=== PATIENT | female | born 1965 | race Caucasian/White ===

== ENCOUNTER 2023-07-01 09:37 | Emergency (ER) | payer OTHER, SELFPAY ==
--- NOTE | ~2023-07-01 | XR_ITS ---
XR chest 2V DATE: 07/01/2023 10:22 INDICATION: Cough TECHNIQUE: 2 views COMPARISON: None FINDINGS: Mild atelectasis at the right lung base. The lungs otherwise appear clear. No pleural effus ion or pulmonary vascular congestion or pneumothorax. Heart size is within normal limits. No hilar or mediastinal enlargement. Surgical clips overlie the posterior upper outer quadrant of the left breast. Diffuse osteopenia. IMPRESSION: Mild atelectasis at the right lung base; otherwise no active cardiopulmonary disease Reviewed, dictated and finalized at location A. IMPRESSION: Mild atelectasis at the right lung base; otherwise no active cardio pulmonary disease
--- NOTE | 2023-07-01 09:41 | ED.GENADULT ---
HPI - General Adult General Chief complaint: Upper Respiratory Infection Stated complaint: sorethroat,headache Time Seen by Provider: 07/01/23 09:41 Source: patient Mode of arrival: ambulatory Limitations: no limitations History of Present Illness HPI narrative: 57-year-old female presents to the Urgent Care today with complaints of sore throat cough, congestion, and fatigue for 10 days. patient reports not having a fever but experiencing chills at work. patient states people at work have also been having cold symptoms. patient has tried using NyQuil and DayQuil that have helped her sleep. patient denies difficulty breathing and feels like her symptoms have improved today. Related Data Home Medications Medication Instructions Recorded Confirmed Eliquis 07/01/23 Allergies Allergy/AdvReac Type Severity Reaction Status Date / Time poison jose maria extract Allergy Unknown Rash Verified 07/01/23 09:54 Sulfa (Sulfonamide Allergy Unknown Rash Verified 07/01/23 09:54 Antibiotics) sulfanilamide Allergy Unknown Rash Verified 07/01/23 09:54 sulfur dioxide Allergy Unknown Rash Verified 07/01/23 09:54 Review of Systems Review of Systems: CONSTITUTIONAL: Denies fever, positive chills, and denies sweats. EYES: Denies visual changes, redness, or discharge. ENT: positive rhinorrhea, congestion, sore throat, denies otalgia. CARDIOVASCULAR: Denies chest pain, palpitations, or edema. RESPIRATORY: positive cough with production, denies dyspnea. GASTROINTESTINAL: Denies abdominal pain, nausea, vomiting, positive diarrhea. GENITOURINARY: Denies dysuria or hematuria. SKIN: Denies rash or itching. MUSCULOSKELETAL: Denies back pain, joint pain, or myalgia. NEUROLOGIC: positive headache, denies numbness, and weakness. PSYCHIATRIC: Denies anxiety or depression. [facility] Past Medical History Medical History (Updated 07/01/23 @ 10:49 by DARRYL Woo) Arthropathy of ankle Cellulitis and abscess of leg Chronic anticoagulation DVT (deep venous thrombosis) History of pulmonary embolism Insomnia due to medical condition Orthostasis Plantar fascial fibromatosis of left foot Pulmonary embolism Rectal polyp Recurrent acute serous otitis media of both ears Varicose veins of both lower extremities with complications Surgical History Surgical History (Updated 07/01/23 @ 09:46 by DARRYL Woo) H/O hemorrhoidectomy Family History Family History Mother Hypertension Family history of arthritis Family history of obesity Sibling Family history of allergic disorder Family history of obesity Family history of colitis Father Family history of diabetes mellitus in first degree relative Family history of renal failure Family history of heart disease in male family member before age 55 Grandparent Family history of heart disease in male family member before age 55 Other Diabetes mellitus Family history of cardiovascular disease Family history of gout Family history of malignant neoplasm of breast Social History Social History Smoking status: Current every day smoker Alcohol intake: current Comments At the time of my signature I agree with nursing past medical history, surgical, social, and family history. There is no relevant family history pertinent to the presenting complaint. Exam Narrative: GENERAL: Well-appearing, well-nourished, and in no acute distress. HEAD: Normocephalic, atraumatic. EYES: PERRLA and EOMI. ENT: no rhinorrhea or epistaxis. Mucous membranes moist. slight edema to right near. posterior pharynx with no erythema, exudates or lesions present. Bilateral TMs slight fluid noted but no erythema no foreign bodies now NECK: Supple. positive submandibular lymphadenopathy bilaterally. CHEST: Clear to auscultation. No respiratory distress. HEART: Regular rate and rhyt
[2023-07-01 09:53] VITALS: BP 92/58; PULSE 78; RESP 18; TEMP 36.8; O2SAT 98
[2023-07-01 09:54] VITALS: BP 92/58; PULSE 78; RESP 18; TEMP 36.8; O2SAT 98
== END 2023-07-01 10:57 | disposition home or self-care (01) ==
PROVIDERS: Emergency Provider Nurse Practitioner Family
DX: J40 Bronchitis, not specified as acute or chronic (principal); J98.11 Atelectasis; F17.200 Nicotine dependence, unspecified, uncomplicated; Z86.718 Personal history of other venous thrombosis and embolism; Z86.711 Personal history of pulmonary embolism
CPT/HCPCS: 71046; 87081; 87880; 99213; G0463

== ENCOUNTER 2023-07-19 17:11 | Outpatient (CLI) | payer OTHER, SELFPAY ==
[2023-07-19 17:29] LABS: Basophils Absolute Auto 0.1 K/mm3 (0.0-0.1); Basophils Percent Auto 0.8 % (0.2-1.2); Eosinophils Absolute Auto 0.2 K/mm3 (0-0.3); Eosinophils Percent Auto 1.7 % (0-4.4); Hematocrit 41.3 % (37.0-47.0); Hemoglobin 13.1 g/dL (12.0-15.0); Immature Granulocyte Absolute 0.02 K/mm3 (0.00-0.031); Immature Granulocyte Percent A 0.2 % (0-0.5); Lymphocytes Absolute Auto 3.45 K/mm3 (0.9-3.2); Lymphocytes Percent Auto 38.6 % (18.3-44.2); Mean Corpuscular HGB Conc 31.7 g/dl (32-36); Mean Corpuscular Hemoglobin 29.7 pg (26-34); Mean Corpuscular Volume 93.7 fl (80-100); Mean Platelet Volume 8.4 fl (7.4-10.4); Monocytes Absolute Auto 0.5 K/mm3 (0.1-0.6); Monocytes Percent Auto 5.7 % (2.6-8.5); Neutrophils Absolute Auto 4.7 K/mm3 (1.3-6.7); Platelet Count Result 310 k/mm3 (150-375); Red Blood Count 4.41 M/mm3 (4.2-5.4); Red Cell Distribution Width 12.4 % (11.5-14.5); White Blood Count 8.9 K/mm3 (4.5-10.0)
[2023-07-19 17:41] LABS: Alanine Aminotransferase 15 U/L (6-35); Albumin Level 4.5 g/dL (3.5-5.1); Alkaline Phosphatase 80 U/L (38-126); Anion Gap 10 mmol/L (8-16); Aspartate Amino Transferase 26 U/L (14-36); Bilirubin,Total 0.5 mg/dL (0.2-1.3); Blood Urea Nitrogen 16 mg/dL (7-17); Calcium 9.4 mg/dL (8.4-10.2); Carbon Dioxide 26 mmol/L (22-30); Chloride 102 mmol/L (98-107); Cholesterol 280 mg/dL (0-200); Estimated Glomerular Filt Rate > 60; Glucose 113 mg/dL (65-110); HDL Direct 60 mg/dL; Potassium 4.3 mmol/L (3.4-5.0); Sodium 138 mmol/L (137-145); Triglycerides 232 mg/dL (<150)
[2023-07-19 17:52] LABS: LDL Cholesterol Direct 158 mg/dL
[2023-07-19 18:06] LABS: Hemoglobin A1C 5.6 % (<5.7)
== END 2023-07-19 17:12 | disposition home or self-care (01) ==
LOC: ANHLAB 17:12
PROVIDERS: PCP Family Medicine; Visit Provider Family Medicine
DX: E66.9 Obesity, unspecified (principal); Z79.01 Long term (current) use of anticoagulants; Z00.8 Encounter for other general examination
CPT/HCPCS: 36415; 80053; 80061; 83036; 85025

== ENCOUNTER 2023-08-13 11:20 | Emergency (ER) | payer OTHER, SELFPAY ==
[2023-08-13 11:31] VITALS: BP 136/82; PULSE 105; RESP 16; TEMP 37; O2SAT 98
--- NOTE | 2023-08-13 11:56 | ED.URI ---
HPI - URI/Sore Throat General Chief Complaint: Upper Respiratory Infection Stated Complaint: sorethroat,fever Time Seen by Provider: 08/13/23 11:24 Source: patient Mode of arrival: ambulatory Limitations: no limitations History of Present Illness HPI Narrative: 57-year-old female presents to [facility] with complaints of fevers up to 101, nasal congestion, sore throat, body aches, chills, nausea, diarrhea and decreased appetite for the past 2 days. Patient reports that she go to a [employer] event with large amount of people 3 days ago. Patient has been taking [id number] DayQuil, NyQuil and Tylenol with minimal relief. Patient denies vomiting, shortness of breath or wheezing. MD elicited complaint: fever, cough, rhinorrhea and nasal congestion Onset (ago): day(s) (2) Able to tolerate fluids by mouth: Yes Treatments prior to arrival: acetaminophen and cold medicine Related Data Allergies Allergy/AdvReac Type Severity Reaction Status Date / Time poison jose maria extract AdvReac Mild Rash Verified 08/13/23 11:46 Sulfa (Sulfonamide AdvReac Mild Rash Verified 08/13/23 11:46 Antibiotics) sulfanilamide AdvReac Mild Rash Verified 08/13/23 11:46 sulfur dioxide AdvReac Mild Rash Verified 08/13/23 11:46 Review of Systems Constitutional: Constitutional: Reports chills, Reports fatigue, Reports fever(s) and Denies weakness ENT: Denies dysphagia, Denies vertigo, Denies dizziness, Denies epistaxis, Reports nasal congestion and Reports sore throat Cardiovascular: Cardiovascular: Denies chest pain Respiratory: Respiratory: Reports cough, Denies dyspnea and Denies wheezing Gastrointestinal: Gastrointestinal: Denies abdominal pain, Denies bloating, Denies constipation, Denies heartburn, Reports diarrhea, Reports nausea and Denies vomiting Musculoskeletal: Musculoskeletal: Denies arthralgias and Denies joint swelling Integumentary/Breasts: Skin/Breast: Denies rash Neurologic: Denies vertigo, Denies dizziness and Denies syncope [facility] Past Medical History Medical History Arthropathy of ankle Cellulitis and abscess of leg Chronic anticoagulation DVT (deep venous thrombosis) History of pulmonary embolism multiple Insomnia due to medical condition Orthostasis Plantar fascial fibromatosis of left foot Pulmonary embolism Rectal polyp Recurrent acute serous otitis media of both ears Varicose veins of both lower extremities with complications Surgical History Surgical History H/O hemorrhoidectomy H/O right breast biopsy 2012 H/O vaginal hysterectomy ovaries intact. 2012 Family History Family History Mother Hypertension Family history of arthritis Family history of obesity Sibling Family history of allergic disorder Family history of obesity Family history of colitis Father Family history of diabetes mellitus in first degree relative Family history of renal failure Family history of heart disease in male family member before age 55 Grandparent Family history of heart disease in male family member before age 55 Other Diabetes mellitus Family history of cardiovascular disease Family history of gout Family history of malignant neoplasm of breast Social History Social History Smoking status: Never smoker Alcohol intake: current Comments At time of signature, I agree with nursing past medical, surgical, social and family history. There is no relevant family history pertinent to the presenting complaint. Exam Const: General: healthy appearing, no acute distress and alert Nutritional Appearance: well nourished Orientation/consciousness: patient oriented x3 Limitations: no limitations HENMT: Head: normal to inspection Ears: external ears normal, TM's normal bilaterally and EAC's normal
== END 2023-08-13 12:17 | disposition home or self-care (01) ==
PROVIDERS: Emergency Provider Nurse Practitioner Family; PCP Family Medicine
DX: U07.1 COVID-19 (principal); Z86.718 Personal history of other venous thrombosis and embolism; Z86.711 Personal history of pulmonary embolism; Z79.01 Long term (current) use of anticoagulants
CPT/HCPCS: 87426; 87804; 99213; C9803; G0463

== ENCOUNTER 2023-10-05 00:03 | Day surgery (SDC) | payer OTHER, SELFPAY ==
[2023-09-20 15:02] VITALS: BMI 34.0
--- NOTE | 2023-09-20 15:34 | PC.NURSE ---
Spoke with _PATIENT____ regarding medication _ELIQUIS . Pt. verbalizes understanding that the last dose of ____ELIQUIS is to be taken on __10/02/2023 and the Endoscopist will instruct them when to restart after the procedure.
--- NOTE | 2023-10-03 10:08 | SUR.PREOP ---
Patient called regarding upcoming procedure. Message left on pt's vm regarding appointment times.
[2023-10-05 08:02] VITALS: BP 154/92; PULSE 91; RESP 20; TEMP 36; O2SAT 98
[2023-10-05] MEDS: LACTATED RINGERS 1,000 ML 150 ML IV CONT (08:15)
--- NOTE | 2023-10-05 08:55 | PM.HPGS ---
History of Present Illness History of Present Illness Consent: Risks, benefits, and alternatives have been discussed and questions answered. Patient agrees to proceed with procedure. Chief complaint: hx of colon polyps Narrative: Doreen Andre is a 58 year old female with colon polyp in 2012, 2018 no polyps. Review of Systems Constitutional: Constitutional: Denies headache(s) and Denies weakness Eyes: Eyes: Denies blurry vision ENT: Reports Normal hearing present, Denies headache(s) and Denies neck pain Cardiovascular: Cardiovascular: Denies chest pain and Denies dyspnea Respiratory: Respiratory: Denies dyspnea Gastrointestinal: Gastrointestinal: Reports no additional gastrointestinal complaints Genitourinary: Genitourinary: Denies dysuria Musculoskeletal: Musculoskeletal: Denies neck pain Integumentary/Breasts: Skin/Breast: Denies dry skin Neurologic: Reports Normal hearing present, Denies headache(s) and Denies weakness Psychiatric: Psychiatric: Denies anxiety Endocrine: Endocrine: Denies change in body appearance Hematologic/Lymphatic: Hematologic/Lymphatic: Denies easy bleeding Allergic/Immunologic: Allergic/Immunologic: Denies urticaria PMFSH Past Medical History Medical History Arthropathy of ankle Cellulitis and abscess of leg Chronic anticoagulation DVT (deep venous thrombosis) History of pulmonary embolism multiple Insomnia due to medical condition Orthostasis Plantar fascial fibromatosis of left foot Pulmonary embolism Rectal polyp Recurrent acute serous otitis media of both ears Varicose veins of both lower extremities with complications Surgical History Surgical History H/O hemorrhoidectomy H/O right breast biopsy 2012 H/O vaginal hysterectomy ovaries intact. 2013 Family History Family History Mother Hypertension Family history of arthritis Family history of obesity Sibling Family history of allergic disorder Family history of obesity Family history of colitis Father Family history of diabetes mellitus in first degree relative Family history of renal failure Family history of heart disease in male family member before age 55 Grandparent Family history of heart disease in male family member before age 55 Other Diabetes mellitus Family history of cardiovascular disease Family history of gout Family history of malignant neoplasm of breast Social History Social History (Updated 08/21/23 @ 15:13 by Brenda Ceja MA) Smoking status: Never smoker Alcohol intake: current Drinks per week: 2 Substance use: never Substance use type: does not use Do You Feel Safe in your Home?: Yes Lack of Transportation: No Lack of Food: Never True Current Housing: I Have Housing Concerned About Future Housing: No Difficulty Paying Gas/Electric Bills: No Difficulty Paying for Meds: No Currently Unemployed: No Education: Master's Degree or Higher Difficulty w/ Childcare or Family Care: No Living arrangements: with family Spiritual care concerns: No Meds Home Medications and Allergies Home Medications Medication Instructions Recorded Confirmed Type apixaban 2.5 mg tablet (Eliquis) 2.5 mg PO BID #180 tabs 07/17/23 09/20/23 Rx benzonatate 100 mg capsule 100 mg PO BID PRN cough #20 caps 08/13/23 09/20/23 Rx loratadine 10 mg tablet (Claritin) 10 mg PO DAILY #30 tabs 08/13/23 09/20/23 Rx bupropion HCl 150 mg 24 hr tablet, 150 mg PO QAM #90 tabs 08/21/23 09/20/23 Rx extended release Allergies Allergy/AdvReac Type Severity Reaction Status Date / Time poison jose maria extract AdvReac Mild Rash Verified 10/05/23 08:01 Sulfa (Sulfonamide AdvReac Mild Rash Verified 10/05/23 08:01 Antibiotics) sulfanilamide AdvReac Mild Rash Verified 10/05/23 08:01 sulfur
--- NOTE | 2023-10-05 08:56 | WPDANESEPPF ---
Anes - Initial Pre Proc Eval Procedure: Operation Date: 10/05/23 09:00 Proposed Procedures p Colonoscopy - Rudolph Daniels MD Date/Time: 10/05/23 08:56 Surgeon: Rudolph Daniels MD Pre Op Diagnosis: hx of colon polyps Patient Data Age: 58 Gender: F Height: 1.78 m Weight: 107.1 kg Last Vital Signs Temp 96.8 F L 10/05/23 08:02 Pulse 91 10/05/23 08:02 Resp 20 10/05/23 08:02 BP 154/92 H 10/05/23 08:02 Pulse Ox 98 10/05/23 08:02 O2 Del Method Room Air 10/05/23 08:02 Allergies Allergy/AdvReac Type Severity Reaction Status Date / Time poison jose maria extract AdvReac Mild Rash Verified 10/05/23 08:01 Sulfa (Sulfonamide AdvReac Mild Rash Verified 10/05/23 08:01 Antibiotics) sulfanilamide AdvReac Mild Rash Verified 10/05/23 08:01 sulfur dioxide AdvReac Mild Rash Verified 10/05/23 08:01 steri strip adhesive Allergy Severe Rash Uncoded 10/05/23 08:01 Home Medications Medication Instructions Recorded Confirmed Type apixaban 2.5 mg tablet (Eliquis) 2.5 mg PO BID #180 tabs 07/17/23 09/20/23 Rx benzonatate 100 mg capsule 100 mg PO BID PRN cough #20 caps 08/13/23 09/20/23 Rx loratadine 10 mg tablet (Claritin) 10 mg PO DAILY #30 tabs 08/13/23 09/20/23 Rx bupropion HCl 150 mg 24 hr tablet, 150 mg PO QAM #90 tabs 08/21/23 09/20/23 Rx extended release Patient hx anesthesia problems: none Family hx anesthesia problems: none Results Review: All pre-operative results and documents have been reviewed as part of the pre-operative evaluation. [facility] Past Medical History Medical History Arthropathy of ankle Cellulitis and abscess of leg Chronic anticoagulation DVT (deep venous thrombosis) History of pulmonary embolism multiple Insomnia due to medical condition Orthostasis Plantar fascial fibromatosis of left foot Pulmonary embolism Rectal polyp Recurrent acute serous otitis media of both ears Varicose veins of both lower extremities with complications Surgical History Surgical History H/O hemorrhoidectomy H/O right breast biopsy 2012 H/O vaginal hysterectomy ovaries intact. 2012 Family History Family History Mother Hypertension Family history of arthritis Family history of obesity Sibling Family history of allergic disorder Family history of obesity Family history of colitis Father Family history of diabetes mellitus in first degree relative Family history of renal failure Family history of heart disease in male family member before age 55 Grandparent Family history of heart disease in male family member before age 55 Other Diabetes mellitus Family history of cardiovascular disease Family history of gout Family history of malignant neoplasm of breast Social History Social History (Updated 08/21/23 @ 15:13 by Brenda Ceja MA) Smoking status: Never smoker Alcohol intake: current Drinks per week: 2 Substance use: never Substance use type: does not use Do You Feel Safe in your Home?: Yes Lack of Transportation: No Lack of Food: Never True Current Housing: I Have Housing Concerned About Future Housing: No Difficulty Paying Gas/Electric Bills: No Difficulty Paying for Meds: No Currently Unemployed: No Education: Master's Degree or Higher Difficulty w/ Childcare or Family Care: No Living arrangements: with family Spiritual care concerns: No Anes - Eval Final PreProcedure Day of Procedure 10/05/23 08:56 Patient weight: obese Heart: regular rate and rhythm Lungs: clear to auscultation Airway: Mallampati scale class II Neurological: alert and oriented Last oral intake: >/= 8 hours ASA classification: III Emergent: no Anesthetic plan: proceed Anesthesia type and monitoring: general GIVS and standard monitoring Re
[2023-10-05 09:16] VITALS: BP 123/81; PULSE 84; RESP 20; O2SAT 98
[2023-10-05 09:26] VITALS: BP 117/85; PULSE 82; RESP 23; O2SAT 98
[2023-10-05 09:31] VITALS: BP 124/80; PULSE 76; RESP 20; O2SAT 98
[2023-10-05 09:39] VITALS: BP 124/90; PULSE 73; RESP 20; O2SAT 98
== END 2023-10-05 09:44 | disposition home or self-care (01) ==
PROVIDERS: PCP Family Medicine; Visit Provider Internal Medicine Gastroenterology
PROC: 0DJD8ZZ Inspection of Lower Intestinal Tract, Via Natural or Artificial Opening Endoscopic (ICD-10-PCS; CPT 45378; principal; 2023-10-05 09:00)
DX: Z12.11 Encounter for screening for malignant neoplasm of colon (principal); K64.8 Other hemorrhoids; Z86.010 Personal history of colon polyps; Z86.718 Personal history of other venous thrombosis and embolism; Z86.711 Personal history of pulmonary embolism; Z79.01 Long term (current) use of anticoagulants; E66.9 Obesity, unspecified; Z68.33 Body mass index [BMI] 33.0-33.9, adult
CPT/HCPCS: 45378; J2704; J7120

== ENCOUNTER → 2023-10-31 14:21 | Outpatient (CLI) | payer OTHER, SELFPAY ==
--- NOTE | ~2023-10-31 | MM_ITS ---
EXAMINATION: MM screening laith BI w steve HISTORY: Screening TECHNIQUE: Craniocaudal and mediolateral oblique 3-D tomosynthesis images were obtained and synthetic 2-D images were generated. CAD analysis was submitted and interpreted. COMPARISON: No prior mammogram is available for comparison at this institution. BREAST PARENCHYMAL COMPOSITION: The breasts are almost entirely fatty. FINDINGS: There is no evidence of suspicious mass, calcification, or architectural distortion to sugg est malignancy in either breast. There has been no suspicious interval change. IMPRESSION: 1. No mammographic evidence of malignancy. 2. Recommend routine screening mammography in one year. BI-RADS Category 1: Negative Reviewed, dictated and finalized at location A. PMENT TECH
== END ==
PROVIDERS: PCP Family Medicine; Visit Provider Family Medicine
DX: Z12.31 Encounter for screening mammogram for malignant neoplasm of breast (principal)
CPT/HCPCS: 77063; 77067

== ENCOUNTER 2024-06-09 16:55 | Outpatient (CLI) | payer OTHER, SELFPAY ==
[2024-06-09 17:27] LABS: Alanine Aminotransferase 13 U/L (6-35); Albumin Level 4.5 g/dL (3.5-5.1); Alkaline Phosphatase 90 U/L (38-126); Anion Gap 7 mmol/L (4-12); Aspartate Amino Transferase 23 U/L (14-36); Bilirubin,Total 0.4 mg/dL (0.2-1.3); Blood Urea Nitrogen 14 mg/dL (7-17); Calcium 9.4 mg/dL (8.4-10.2); Carbon Dioxide 30 mmol/L (22-30); Chloride 101 mmol/L (98-107); Cholesterol 265 mg/dL (0-200); Estimated Glomerular Filt Rate > 60; Glucose 110 mg/dL (65-110); HDL Direct 62 mg/dL; Potassium 4.6 mmol/L (3.4-5.0); Sodium 138 mmol/L (137-145); Triglycerides 217 mg/dL (<150)
[2024-06-09 17:31] LABS: Hemoglobin A1C 5.8 % (<5.7)
[2024-06-09 17:39] LABS: LDL Cholesterol Direct 146 mg/dL
[2024-06-09 18:49] LABS: Hepatitis C Virus Antibody Negative (Negative)
== END 2024-06-09 16:56 | disposition home or self-care (01) ==
LOC: ANHLAB 16:57
PROVIDERS: PCP Family Medicine; Visit Provider Family Medicine
DX: E78.2 Mixed hyperlipidemia (principal); Z11.59 Encounter for screening for other viral diseases; R73.01 Impaired fasting glucose
CPT/HCPCS: 36415; 80053; 80061; 83036; 86803

== ENCOUNTER 2025-04-22 08:31 | Outpatient (CLI) | payer OTHER, SELFPAY ==
--- OUTSIDE RECORDS SUMMARY | 2023-12-14 04:45 | XMS_ITS | Continuity of Care Document ---
Author Organization [facility] Address [address] [place] [address] Phone Care Team Providers Care Lockstitch Sleeve Setter Name Role Phone Kaiser Moran DO Unavailable Unavailable Allergies, Adverse Reactions, Alerts Substance Reaction Status Criticality adhesive Active No Information Sulfa (Sulfonamide Antibiotics) Active No Information Medications Medication Instructions Dosage Effective Dates (start - stop) Status Comments Zyrtec 10 mg tablet - Active Eliquis 5 mg tablet - Active Procedures Procedure Date RADEX HAND MINIMUM 3 VIEWS OFFICE CONSULTATION Advance Directives Directive Yes / No Effective Date File Name Other Directive No N/A N/A WARNING:The information contained in this section is historical and is provided for information only and does not constitute a legal document or any assurance that the information is still accurate. Please verify the information with the howell of the legal document before using it for clinical purposes. Encounters Encounter Description Practice Location Reason(s) For Visit Diagnoses Date Provider Providers Copied on Encounter OFFICE CONSULTATION [facility] , [address], [place], [address], [place] tel:[phone] [facility] Right hand painBody mass index [BMI] 34.0-34.9, adult Dec- 4 Luisa Saab . [address], [place], [place], [id number] , [place]. tel:[phone] Referring Provider: Rohini Guadarrama, PERMANENTLY CLOSED [address] [place], [place], [address]. tel:[phone] Family History Family Member Type Diagnosis Age At Onset No Information Payers Payer name Insurance type Covered green party ID Prince vital(s) [facility] OT [id number] Social History Type Description Quantity Date Captured Comments Alcohol Use Details Caffeine Use Details Unknown Tobacco Use Status Current non-smoker Smoking Status Never smoker Non-Smoking Tobacco Use Details : No Details Available : No Details Available Sex Female Vital Signs Date / Time: Height Weight BMI Pulse Rate Blood Pressure Temperature Respiratory Rate Body Surface Area Head Circumference Head Circ. Percentile Wt./Cyrus. Percentile BMI percentile Pulse Ox Inhaled Ox 10:00 AM 70.00 in 108.409 kg (239.00 lbs) 34.2 9 kg/m eter (2) Chief Complaint And Reason For Visit No Information Reason For Referral Reason For Referral No Information Plan Of Treatment Date Type Action Status Goal Lifestyle education regardin g diet completed Referral Ordered: RADEX HAND MINIMUM 3 VIEWS RT ordered History Of Present Illness Encounter Date Complaint History Of Prese nt Illness No Information Functional Status Date Functional Assessmen t No Information Instructions Date Instruction Additional Infor mation Lifestyle education regarding di et Related to Body mass index [BMI] 34.0-34.9, adult Assessments Type Assessment Date assessment Right hand pain assessment Body mass index [BMI] 34.0-34.9, adult Patient Care Teams Name Effective Dates (start - stop) Status Members No Information
--- NOTE | ~2025-04-22 | MM_ITS ---
EXAMINATION: MM screening laith BI w steve HISTORY: Screening mammogram TECHNIQUE: Craniocaudal and mediolateral oblique 3-D tomosynthesis images were obtained and synthetic 2-D images were generated. CAD analysis was submitted and interpreted. COMPARISON: 10/31/2023 BREAST PARENCHYMAL COMPOSITION:Not Dense. The breasts are almost entirely fatty FINDINGS: No suspicious mass, calcification, or architectural distortion are identified in either breast to suggest malignancy. There has been no suspicious interval change. IMPRESSION: No mammographic evidence of malignancy. Recommend routine screening mammography in one year. BI-RADS Category 1: Negative Reviewed, dictated and finalized at location .
--- OUTSIDE RECORDS SUMMARY | 2025-04-22 08:35 | XMS_ITS | Clinical Summary ---
Author Organization [facility] Address [address] [place] [address] Care Team Providers Care Comber Fixer Name Role Phone Dio Rutherford MD Primary Care Provider [phone] Social History Tobacco Use Types Packs/Day Years Used Date Smoking Tobacco: Never Assessed Comments Unknown Sex and Gender Information Value Date Recorded Sex Assigned at Not on file Legal Sex Female 7:17 PM CDT Gender Identity Not on file Sexual Orientation Not on file Last Filed Vital Signs Vital Sign Reading Time Taken Comments Blood Pressure 102/76 07/04/2012 9:19 AM CDT Pulse 87 07/04/2012 9:19 AM CDT Temperature - - Respiratory Rate - - Oxygen Saturation - - Inhaled Oxygen Concentration - - Weight 100.2 kg (221 lb) 07/04/2012 9:19 AM CDT Height 177.8 cm (5' 10) 07/04/2012 9:19 AM CDT Body Mass Index 31.71 07/04/2012 9:19 AM CDT Plan of Treatment Health Maintenance Due Date Last Done Comments Cervical Cancer Screening Pap Smear (Age 30 to 64) Every 3 Years 1963 Colorectal Cancer Screening Colonoscopy (10 Years) 1963 Annual Physical 1966 Hepatitis C 1981 DTaP, Tdap and Td Vaccines (1 - Tdap) 1982 Cervical Cancer Screening Pap with HPV Testing (Age 30 to 64) Every 5 Years 1993 Cervical Cancer Screening with HPV 1993 Mammogram Screening 2003 Pneumococcal Vaccine: 50+ Years (1 of 1 - PCV) 2013 COVID-19 Vaccine ( - season) 2024 06/20/2022, 09/14/2021, 09/16/2020, Additional history exists RSV Immunization or 60+ Years (1 - 1-dose 75+ series) 2038 Zoster Vaccines Completed 11/04/2022, 07/13/2022 Meningococcal B Vaccine Aged Out No l onger eligible based on patient's age to complete this topic Meningococcal Vaccine Aged Out No av magdiel eligible based on patient's age to complete this topic RSV Immunizations Under 20 Months Aged Out No longer eligible based on patient's age to complete this topic Insurance [facility] Care Teams Comber Fixer Relationship Specialty Start Date End Date Dio Rutherford MD [facility] [address] [place] [address] PCP - General FAMILY PRACTICE 11/15/23
--- OUTSIDE RECORDS SUMMARY | 2025-04-22 08:35 | XMS_ITS | Encounter Summary ---
Author Organization [facility] Facility Care Team Providers Care Biochemistry Teacher Name Role Phone Hiwot Quiroz MD Primary Care Provider + Brenda Woodall MD Unavailable [phone] Hiwot Quiroz MD Primary Care Provider + Berhane Mendez MD Primary Care Provider [phone] Ananya Sloan DPT Unavailable [phone] Encounter Details Date Type Department Care Team (Latest Contact Info) Description 05/08/2016 Orders Only [facility] CLINCONV ProviderSheila MD [address] [place] [id number] Social History Tobacco Use Types Packs/Day Years Used Date Smoking Tobacco: Former Alcohol Use Standard Drinks/Week Comments Yes 0 (1 standard drink = 0.6 oz pur e alcohol) Comments Unknown Sex and Gender Information Value Date Recorded Sex Assigned at Not on file Legal Sex Female 2:22 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 us Historical Provider Final Res ult documented in this encounter Visit Diagnoses Not on filedocumented in this encounter Care Teams Biochemistry Teacher Relationship Specialty Start Date End Date Hiwot Quiroz MD [address] [place] [address] PCP - General 02/07/16 03/07/20 Hiwot Quiroz MD [address] [place] [address] PCP - General 03/08/20 04/19/20 Berhane Mendez MD [address] [place] [id number] PCP - General 04/20/20 Brenda Woodall MD [address] [place] [id number] General Surgery 03/08/20 Ananya Sloan DPT [address] [facility] [address] [place] [address] Physical Therapist Physical Therapy 09/13/20 documented as of this encounter
--- OUTSIDE RECORDS SUMMARY | 2025-04-22 08:35 | XMS_ITS | Clinical Summary ---
Author Organization [facility] Address [address], [facility] [address] [place] [address] Phone Care Team Providers Care Aegis Operations Specialist Name Role Phone Rohini Rutherford MD Primary Care Provider [phone] Clem Sanchez MD Unavailable Allergies Active Allergy Reactions Criticality Noted Date Comments Poison Carissa Extract Other (see Comments) 018 Blister, rash, oozing Sulfa Antibiotics Vomiting Low 08/22/2016 Medications apixaban (Eliquis) 5 MG Tablet 08/25/2019 Active buPROPion SR (WELLBUTRIN SR) 150 MG TABLET SR 12 HR Take by mouth. Active cetirizine (ZyrTEC) 10 MG Tablet Active Active Problems No known active problems Family History Medical History Relation Name Comments Congestive Heart Failure Father Renal Failure Father Relation Name Status Comments Brother Child 1 Alive Child 2 Alive Father Alive Mother Social History Tobacco Use Types Packs/Day Years Used Date Smoking Tobacco: Never Smokeless Tobacco: Never Tobacco Cessation:Counseling Given: Not Answered Alcohol Use Standard Drinks/Week Comments Yes 2 (1 standard drink = 0.6 oz pur e alcohol) Comments Unknown Sex and Gender Information Value Date Recorded Sex Assigned at Not on file Legal Sex Female 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 Gender Identity Not on file Sexual Orientation Not on file Last Filed Vital Signs Vital Sign Reading Time Taken Comments Blood Pressure 130/82 05/01/2024 11:04 AM CDT Pulse 77 05/01/2024 11:04 AM CDT Temperature 36.1 C (97 F) 05/01/2024 11:04 AM CDT Respiratory Rate 18 05/01/2024 11:0 4 AM CDT Oxygen Saturation 98% 05/01/2024 11: 04 AM CDT Inhaled Oxygen Concentration - - Weight 112.3 kg (247 lb 9.6 oz) 024 11:04 AM CDT Height 177.8 cm (5' 10) 05/01/2024 11: 04 AM CDT Body Mass Index 35.53 05/01/2024 11:04 AM CDT Plan of Treatment Upcoming Encounters Date Type Department Care Team (Late st Contact Info) Description 04/30/2025 11:00 AM CDT Office Visit [facility] [address] [address] Ceasar Espinoza MD [address] [place] [address] Health Maintenance Due Date Last Done Comments Hepatitis C Virus (HCV) Screening 1963 TdaP Immunization 1963 Pneumococcal Immunization (50+ years) (1 of 2 - PCV) 1982 Cologuard 2008 Colonoscopy 2008 Colorectal Cancer Screening 2008 Immunochemical Fecal Occult Blood 2008 Mammogram 05/27/2021 05/27/2020, 09/04, 07/19/2016, Additional history exists SARS-COV-2 Immunization ( season) 2024 06/20/2022, 09/14/2021, 09/16/2020, Additional history exists Influenza Immunization (#1) 05/04/202506/03, 07/13/2022, 06/20/2022, Additional history exists Respiratory Syncytial Virus (RSV) Immunization (Adult) (1 - 1-dose 75+ series) 2038 Zoster Immunization Completed 11/04/2022, Hepatitis B Immunization Aged Out No longer eligible based on patient's age to complete this topic Human Papillomavirus (HPV) Immunization Aged Out No longer eligible based on patient's age to complete this topic Meningococcal Immunization (ACWY) Aged Out No longer eligible based on patient's age to complete this topic Rotavirus Immunization Aged Out No lo nger eligible based on patient's age to complete this topic Insurance [employer] Care Teams Aegis Operations Specialist Relationship Specialty Start Date End Date Rohini Rutherford MD [facility] [address] [place] [address] PCP - General Family Medicine 10/25/23 Clem Sanchez MD [address] [place] [address] Consulting Physician Oncology 10/25/23
--- OUTSIDE RECORDS SUMMARY | 2025-04-22 08:35 | XMS_ITS | Clinical Summary ---
Author Organization [facility] Address [address] [facility] [place] [address] Care Team Providers Care Geophysical E Logger Name Role Phone Berhane Mendez MD Primary Care Provider [phone] Source Comments [facility],non-research medical center Affiliates and Associated Physician Practices is amultiple site organization consisting of ambulatory clinics and hospital sitesin [place], [place], [place] and [place]. This disclosure is being madepursuant to the Care Everywhere program and may not contain all information available regarding this patient. Last updated 18.[facility] Allergies Active Allergy Reactions Criticality Noted Date Comments Extract Of Poison Carissa Other 12/10/2017 Blister, rash, oozing Sulfa Drugs 08/22/2016 Medications * Be aware that medications may not be up to date on this document. Alwaysverify current medications with the patient. Cetirizine HCl (ZYRTEC ALLERGY PO) Active aspirin EC (ECOTRIN) 81 MG tablet Take 81 mg by mouth once daily Active ELIQUIS 5 MG tablet 9 Active methylPREDNISol one (MEDROL DOSEPAK) 4 MG tablet Take by mouth as directed Follow package insert dosing for six day supply. 21 tablet 0 Active OtherIndication s:Acute anal fissure Apply sparingly 3-4 times a day PRN 1 Each 1 2 Active Active Problems Problem Noted Date Diagnosed Date Vein, varicose 09/04/2019 Lump of breast, left 12/17/2015 Unknown and unspecified causes of morbidity 01/01 Overview (09/04/2019): Overview: Female bladder prolapse, acquired Uterine prolapse 01/17/2014 Overview (09/04/2019): Overview: Uterine prolapse Family history of breast cancer 09/20/2011 Immunizations Immunization Administration Dates Next Due INFLUENZA VACCINE 06/03/2021 Family History Medical History Relation Name Comments Colitis Brother Ulcerative Colitis Brother CAD (Coronary Artery Disease) Father Diabetes - Type 2 Father Renal Disease Father Colitis Mother Colon polyps Mother Crohn's Disease Mother Hypertension Mother Ulcerative Colitis Mother Relation Name Status Comments Brother Father Mother Social History Tobacco Use Types Packs/Day Years Used Date Smoking Tobacco: Never Smokeless Tobacco: Never Alcohol Use Standard Drinks/Week Comments Yes 0 (1 standard drink = 0.6 oz pur e alcohol) AUDIT-C Answer Date Recorded Frequency of Alcohol Consumption Never 09/04/2019 Average Number of Drinks Not on file 020 Frequency of Binge Drinking Not on file 10/2019 Comments No Sex and Gender Information Value Date Recorded Sex Assigned at Not on file Legal Sex Female 10:02 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 Gender Identity Not on file Sexual Orientation Not on file Last Filed Vital Signs Vital Sign Reading Time Taken Comments Blood Pressure 119/87 01/12/2022 11:20 AM CDT Pulse 74 01/12/2022 11:20 AM CDT Temperature 36.8 C (98.3 F) 09/04/2019 12:25 PM VOIP TECHNICIAN Respiratory Rate 17 09/04/2019 12:25 PM VOIP TECHNICIAN Oxygen Saturation 97% 01/12/2022 11:20 AM CDT Inhaled Oxygen Concentration - - Weight 117 kg (258 lb) 01/12/2022 11:20 AM CDT Height 177.8 cm (5' 10) 01/12/2022 11:20 AM CDT Body Mass Index 37.02 01/12/2022 11:20 AM CDT Plan of Treatment Health Maintenance Due Date Last Done Comments COLOGUARD (AGES 45-75) - COL ON CA SCREENING 1963 COLON MONITORING 1963 COLONOSCOPY - COLON CA SCREENING 1963 CT COLONOGRAPHY - COLON CA SCREENING 1963 Colorectal Cancer Screening 1963 FIT - COLON CA SCREENING 1963 FLEX SIG - COLON CA SCREENING 1963 LIPID TESTING 1963 HIV SCREENING 1978 HEPATITIS C SCREENING 09/26/1981 DTAP/TDAP/TD VACCINES (1 - Tdap) 1982 PNEUMOCOCCAL VACCINE 50+ (1 of 1 - PCV) 2013 ZOSTER VACCINE (1 of 2) 2013 MAMMOGRAM 04/12/2017 04/12/2015, 04/07/2014, 03/07/2013 SCREENING FOR DIABETES 01/12/2022 COVID-19 VACCINE (1 - 2023-2 5 season) 2024 DEPRESSION SCREENING 09/03/2024 INFLUENZA VACCINE (#1) 2025 06/03/2021 Respiratory Syncytial Virus (RSV) Vaccine Pt: or over 60 yrs (1 - 1-dose 75+ series) 2038 HEPATITIS B VACCINE Aged Out No longe r eligible based on patient's age to complete this topic HIB VACCINE Aged Out No longer eligi ble based on patient's age to complete this topic HPV VACCINE Aged Out No longer eligi ble based on patient's age to complete this topic MENINGOCOCCAL (Group B) VACCINE SHARED DECISION-MAKING Aged Out No longer eligible based on patient's age to complete this topic MENINGOCOCCAL GROUPS A/C/Y/W VACCINE Aged Out No longer eligible b ased on patient's age to complete this topic Insurance [facility] Care Teams Geophysical E Logger Relationship Specialty Start Date End Date Berhane Mendez MD [address] [place] [address] PCP - General 01/12/22
--- OUTSIDE RECORDS SUMMARY | 2025-04-22 08:35 | XMS_ITS | Clinical Summary ---
Author Organization [facility] Address [address] [place] [address] Care Team Providers Care Tumble Tailstock Turret Lathe Operator Name Role Phone Brenda Woodall MD Unavailable Berhane Mendez MD Primary Care Provider Ananya Sloan DPT Unavailable [phone] Allergies Active Allergy Reactions Criticality Noted Date Comments Adhesive Rash Medium 02/09/2025 Adhesive Tape-Silicones Rash,Agitation Medium 02/10/20 25 Patient states she is highly allergic to steri strips Other Rash Medium 12/30/2021 Sulfa (Sulfonamide Antibiotics) Other (See comments) Low Stomach pain Sulfanilamide Stomach upset,Nausea & Vomiting Low Medications apixaban (ELIQUIS) 5 mg tabletIndicatio ns:Venous Thrombosis,dvt and PE Take 1 tablet (5 mg total) by mouth 2 (two) times a day Hold for 2 days prior, per suspect artist 9 Active cetirizine (ZyrTEC) 10 mg tabletIndicatio ns:Allergic Rhinitis Take 1 tablet (10 mg total) by mouth daily as needed Active ibuprofen (ADVIL,MOTRIN) 200 mg tab/capIndicati ons:Pain Take 2 tablet/capsule (400 mg total) by mouth every 6 (six) hours as needed for pain Active multivitamin capsuleIndicati ons:Vitamin Deficiency Prevention Take 1 capsule by mouth every morning Active Active Problems Problem Noted Date Diagnosed Date Other chest pain 08/11/2020 Cellulitis of lower leg 08/11/2020 Chronic peripheral venous hypertension 0 Depressive disorder 08/11/2020 Obesity 08/11/2020 Polyp of large intestine 08/11/2020 Postoperative state 08/11/2020 History of DVT (deep vein thrombosis) 08/11/2020 History of pulmonary embolus (PE) 08/11/2020 Contact dermatitis 07/25/2020 Assessment & Plan (07/25/2020 11:10 AM CREPING MACHINE OPERATOR HELPER): Based on history, suspect new turtle neck as cause of this rash. To start triamcinolone cream to affected area twice a day for up to 2 weeks. She additionally, did prescribe a prednisone burst. May continue as needed Benadryl for itching. 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 Drink enough fluids. 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 Patient has a chronic left popliteal DVT found on duplex scan. Plan: Due to multiple DVT's recommend lifelong anticoagulation. -Continue Eliquis. Varicose veins of both lower extremities with pa in 06/06/2016 Assessment & Plan (01/28/2025 11:17 AM CDT): Impression: Patient has had multiple interventions to bilateral lower extremities in 2019. Patient continues to have pain and heaviness to bilateral lower extremities with her left lower extremity worse than the right despite compression therapy, leg elevation. Patient reports she is active riding bikes, walking, and aerobics however due to discomfort to her legs her activity level has decreased causing difficulties with weight loss. Patient underwent venous reflux studies which show significant reflux at the left saphenous femoral junction and throughout great saphenous vein. Reflux is noted to the right saphenous femoral junction reflux to the great saphenous vein at knee level. Varicose vein noted to left posterior calf. Plan: Discussed with the patient with her long standing history of venous insufficiency and multiple interventions to her lower extremities, undergoing another intervention may not help improve her symptoms. 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 She would like to proceed with intervention. - Recommend staged intervention starting with the left lower extremity ERFA with possible stab phlebectomies and right ERFA. Risks, benefits, and alternatives to saphenous ablation and stab phlebectomies were discussed with the patient. Risks including bleeding, infection, deep vein thrombosis, pulmonary embolism, burn injury to the skin and/or nerve. Discussed follow up recommendations with venous duplex scans. She voices understanding and wishes to proceed. -Continue utilizing compression therapy and leg elevation. Lump of breast, left 12/17/2015 Herniated urinary bladder 01/17/2014 Overview (12/07/2016): Female bladder prolapse, acquired Family history of breast cancer 09/20/2011 Resolved Problems Problem Noted Date Diagnosed Date Resolved Date Varicose veins of both lower extremities with pain 08/11/2020 01/28/2025 Assessment & Plan (12/18/2024 11:14 AM CDT): Follow up in the next few weeks with a venous reflux. Cystocele, midline 05/06/2020 2 Vaginal foreign body, initial encounter 05/06/2020 11/15/2020 Uterine prolapse 01/17/2014 08/11/2020 Overview (12/06/2016): Uterine prolapse Encounters Date Type Department Care Team Description 03/27/2025 Telephone [facility] Vascular and Vein Surgery [address] [facility] [address] [place] [phone] Ernesto Gastelum MD ? Steri strips 02/06/2025 Documentation [facility] Vascular and Vein Surgery [facility] [address] [place] [address] Allyson Pinto RN 02/06/2025 Orders Only [facility] Vascular and Vein Surgery [address] [facility] [address] [place] [address] Ernesto Gastelum MD Varicose veins of leg with pain, left (Primary Dx); Varicose veins of leg with pain, right; Varicose veins of both lower extremities with pain 01/29/2025 Documentation [facility] Vascular and Vein Surgery [facility] [address] [place] [address] Allyson Pinto RN 01/28/2025 8:30 AM CDT Office Visit [facility] Vascular at [address] [place] [address] Yoana Loo NP Varicose veins of both lower extremities with pain (Primary Dx); Chronic deep vein thrombosis (DVT) of popliteal vein of left lower extremity (HCC) from Last 3 Months Surgical History Surgery Date Site/Laterality Comments OTHER SURGICAL HISTORY bladder tuck ENDOVENOUS ABLATION SAPHENOUS VEIN W/ LASER 03/03/2020 - 04/02/2020 Right R greater and short saphenous laser tx with microphlebectomies TOTAL VAGINAL HYSTERECTOMY 04/30/2012 w/ uterosacral ligament suspension COMBINED HYSTEROSCOPY DIAGNOSTIC / D&C 02/22/2012 PMB w/ thickened EMS BREAST LUMPECTOMY 09/03/2011 - 10/03/2011 Left VEIN LIGATION AND STRIPPING 1988, 1993 Left genetic COLONOSCOPY 2012, 2018 polyps 2012 Medical History Medical History Date Comments Hx Other Medical 2010 laser vein surg william L leg Hx Other Medical laser vein surg william L leg 2008 Hx Other Medical 2011 breast lump Hx Other Medical 05/08/2016 multiple DVTs & PEs Pelvic pain H/O vein stripping 1989 L leg History of vein stripping 1993 L leg Family History Medical History Relation Name Comments Diabetes Father Heart disease Father Breast cancer Father's Sister 2 Cancer, b reast; Hypertension Mother Other Other 1 Family history of hyst/Bladder tuck summer 2011; Other Other 2 Family history of Vericose Vein left leg 1988,1993,2003; Arthritis Other 3 Family history of Arthritis; Gout Other 4 Family history of Gout; Hypertension Other 5 Family history of Hypertension; Relation Name Status Comments Father Father's Sister 1 Alive Father's Sister 2 Mother Other 1 Other 2 Other 3 Other 4 Other 5 Social History Tobacco Use Types Packs/Day Years Used Date Smoking Tobacco: Former Cigarettes Q uit: 1983 Smokeless Tobacco: Never Comments:Quit age 18. [employer] only Alcohol Use Standard Drinks/Week Comments Yes 5 (1 standard drink = 0.6 oz pur e alcohol) Exercise Vital Sign Answer Date Recorde d On average, how many days pe r week do you engage in moderate to strenuous exercise (like a brisk walk)? 0 days 05/06/2020 On average, how many minutes do you engage in exercise at this level? 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 OPERATOR HELPER Gender Identity Female 01/02/2021 3:49 PM CDT Sexual Orientation Straight 01/02/2021 3: 48 PM CDT Obstetrics History Para Term AB IAB SAB Ectopic Multiple Livin g Live Births 2 2 2 2 2 Date Outcome GA Total Labor Labor/2nd/3rd Weight Sex Type Anes PTL Shirley A1 A5 Name Clin Term Vag-S pont Living Term Vag-S pont Living Comments G1: 6lb 8oz G2: Last Filed Vital Signs Vital Sign Reading Time Taken Comments Blood Pressure 123/86 01/28/2025 8:30 AM CDT Pulse 71 01/28/2025 8:30 AM CDT Temperature 36.8 C (98.2 F) 2020 8:43 AM CREPING MACHINE OPERATOR HELPER Respiratory Rate 17 2020 8:43 AM CREPING MACHINE OPERATOR HELPER Oxygen Saturation 97% 01/28/2025 8:30 AM CDT Inhaled Oxygen Concentration - - Weight 113.4 kg (250 lb) 01/28/2025 8:30 AM CDT Height 177.8 cm (5' 10) 01/28/2025 8:30 AM CDT Body Mass Index 35.87 01/28/2025 8:30 AM CDT Plan of Treatment Health Maintenance Due Date Last Done Comments Colon Cancer Screening-Colonoscopy 1965 Depression Screening 1965 DTaP/Tdap/Td Vaccine (1 - Tdap) 1974 Hepatitis B Screening 1981 Regular Well Visit/Exam 18-64 2018 2017 Breast Cancer Screening-Mammogram 05/27/2021 05/27/2020, 2017, 07/19/2016, Additional history exists Covid-19 Vaccine ( season) 2024 06/20/2022, 09/14/2021, 09/16/2020, Additional history exists Influenza Vaccine (#1) 2025 , 06/14/2023, 07/13/2022, Additional history exists Hepatitis C Screening Completed 04/09/2014 Zoster Vaccine Completed 11/04/2022, 07/13/2022 Pneumococcal vaccine <65 Aged Out No longer eligible based on patient's age to complete this topic Medical Devices Implanted Type Area Multigrapher Device Identifier Shelf Expiration Date Model / Serial / Lot [employer] [id number] Upsylon 35.4cm Elongation Profile Lightweight Large Pore Low - [id number] Implanted:Qty: 1 on 09/30/2020 by Olman Guerra MD at [facility] N/A: Pelvis [employer] [id number] 04/02/2023 [id number] / / [id number] Procedures Procedure Name Priority Date/Time Associated Diagnosis Comments SCREENING MAMMOGRAM BILATERAL W DELMAR Schedule Routine, Read Routine (OP Routine) 05/27/2020 9:19 AM CDT Encounter for screening mammogram for malignant neoplasm of breast SERUM HEPATITIS C AB Routine 04/09/2014 3:15 AM CDT from Last 3 Months or Most Recently Relevant to Health Maintenance Results * Screening Mammogram Bilateral W [place] (05/27/2020 9:19 AM CDT) Anatomical Region Laterality Modality Breast Bilateral Mammography 05/27/2020 Addenda Addendum by Yesenia Sotelo MD on 08/20/2020 10:06 AM [place], [place] DOREEN MENDEZ : 1965 [facility] Account: [id number] ATTENDING PHYSICIAN: SELF SCREENING MAMMOGRAM, ORDERING PHYSICIAN: SELF SCREENING MAMMOGRAMMD TECHNOLOGIST: TIERA TANNER ADDENDED REPORT 08/20/2020 Addendum: The present examination has been compared to a prior imaging study performed at [facility] on 01/23/2019. BI-RADS Category 1: Negative Impressions 05/27/2020 2:03 PM CDT There is no mammographic evidence of malignancy. A return to screening mammogram in 1 year is recommended. Computer Aided Detection (CAD) version 7.2 was used in the interpretation of this study. 3-dimensional tomosynthesis with 2-dimensional reconstructed digital imaging was obtained. Breast density was evaluated using Cuil software version 2.7. BI-RADS Category 1: Negative This report has been dictated and electronically signed by YESENIA SOTELO MD on 08/20/2020 10:06:30 Narrative 05/27/2020 2:03 PM CDT ORIGINAL REPORT EXAM: Bilateral Digital Screening Mammogram With Tomosynthesis - 05/27/2020 HISTORY: Patient is a 54 year old female and is seen for screening. The patient has a history of left excisional biopsy. N CI within lifetime: 10.4% T yrer-Cuzick: Lifetime risk based on the Tyrer-Cuzick risk model was not calculated. B RCA1: 0.1% B RCA2: 0.1% FILMS COMPARED: No prior films were available for comparison. MAMMOGRAM FINDINGS: Bilateral CC tomosynthesis and C-view images, bilateral MLO tomosynthesis and C-view images were obtained. The breasts are almost entirely fat. There are no suspicious masses, calcifications or other abnormalities. Digital breast tomosynthesis was performed and reviewed as a part of this examination. Procedure Note Yesenia Sotelo MD - 08/20/2020 ORIGINAL REPORT EXAM: Bilateral Digital Screening Mammogram With Tomosynthesis -05/27/2020 HISTORY: Patient is a 54 year old female and is seen for screening. The patient hasa history of left excisional biopsy. N CI within lifetime: 10.4% T yrer-Cuzick: Lifetime risk based on the Tyrer-Cuzick risk model wasnot calculated. B RCA1: 0.1% B RCA2: 0.1% FILMS COMPARED: No prior films were available for comparison. MAMMOGRAM FINDINGS: Bilateral CC tomosynthesis and C-view images, bilateral MLO tomosynthesisand C-view images were obtained. The breasts are almost entirely fat. There are no suspicious masses, calcifications or other abnormalities. Digital breast tomosynthesis was performed and reviewed as a part ofthis examination. IMPRESSION: There is no mammographic evidence of malignancy. A return to screening mammogram in 1 year is recommended. Computer Aided Detection (CAD) version 7.2 was used in the interpretationof this study. 3-dimensional tomosynthesis with 2-dimensional reconstructed digitalimaging was obtained. Breast density was evaluated using Cuil software version2.7. BI-RADS Category 1: Negative This report has been dictated and electronically signed by Adrian STEVEN 08/20/2020 10:06:30 us Self Screening Mammogram IMG MAMMO PROCEDURES Ed ited Result - Final * Serum Hepatitis C ab (04/09/2014 3:15 AM CDT) HCV ab NON-REACTI VE NON-REACTI VE HISTORICAL RESULTS Hepatitis signal to cutoff ratio 0.02 <1.00 HISTORICAL RESULTS Serum 04/09/2014 3:15 AM CDT Narrative HISTORICAL RESULTS - 04/13/2014 8:00 AM CDT [facility] [address] [place] [address] Director: CRISELDA TADEO DO,MPH us Historical Provider LAB BLOOD ORDERABLES Mariza niño Result HISTORICAL RESULTS from Last 3 Months or Most Recently Relevant to Health Maintenance Insurance [facility] CHOICE PLUS [facility] CHOICE PLUS Advance Directives For more information, please contact: [phone] * Full Code (Latest Code Status on File) Date Activated Date Inactivated Comments 09/30/2020 1:01 PM 2020 4:12 PM Care Teams Tumble Tailstock Turret Lathe Operator Relationship Specialty Start Date End Date Berhane Mendez MD [address] [facility] [address] [place] [address] PCP - General 04/20/20 Brenda Woodall MD [address] [place] [address] General Surgery 03/08/20 Ananya Sloan DPT [address] [address] Physical Therapist Physical Therapy 09/13/20
--- OUTSIDE RECORDS SUMMARY | 2025-04-22 08:35 | XMS_ITS | Encounter Summary ---
Author Organization [facility] Care Team Providers Care Information Technology Internship Name Role Phone Hiwot Quiroz MD Primary Care Provider + Brenda Woodall MD Unavailable [phone] Hiwot Quiroz MD Primary Care Provider + Berhane Mendez MD Primary Care Provider [phone] Ananya Sloan DPT Unavailable [phone] Encounter Details Date Type Department Care Team (Latest Contact Info) Description 04/18/2016 Orders Only [facility] CLINCONV ProviderSheila MD [address] [place] [id number] Social History Tobacco Use Types Packs/Day Years Used Date Smoking Tobacco: Former Alcohol Use Standard Drinks/Week Comments Yes 0 (1 standard drink = 0.6 oz pur e alcohol) Comments Unknown Sex and Gender Information Value Date Recorded Sex Assigned at Not on file 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 Historical Provider Final Res ult * SCAN - LABS (04/19/2016 12:00 AM CDT) Narrative 04/19/2016 12:00 AM CDT Ordered by an unspecified provider. Historical Provider Final Res ult * SCAN - LABS (04/18/2016 12:00 AM CDT) Narrative 04/18/2016 12:00 AM CDT Ordered by an unspecified provider. [facility] Provider Final Res ult documented in this encounter Visit Diagnoses Not on filedocumented in this encounter Care Teams Information Technology Internship Relationship Specialty Start Date End Date Hiwot Quiroz MD [address] [place] [address] PCP - General 02/07/16 03/07/20 Hiwot Quiroz MD [address] [place] [address] PCP - General 03/08/20 04/19/20 Berhane Mendez MD [address] [place] [address] PCP - General 04/20/20 Brenda Woodall MD [address] [place] [address] General Surgery 03/08/20 Ananya Sloan DPT [address] [facility] [address] [place] [address] Physical Therapist Physical Therapy 09/13/20 documented as of this encounter
--- OUTSIDE RECORDS SUMMARY | 2025-04-22 08:35 | XMS_ITS | Encounter Summary ---
Author Organization [facility] Facility Care Team Providers Care Information Assurance Officer Name Role Phone Hiwot Quiroz MD Primary Care Provider + Brenda Woodall MD Unavailable [phone] Hiwot Quiroz MD Primary Care Provider + Berhane Mendez MD Primary Care Provider [phone] Ananya Sloan DPT Unavailable [phone] Encounter Details Date Type Department Care Team (Latest Contact Info) Description 04/27/2016 Orders Only [facility] CLINCONV ProviderSheila MD [address] [place] [address] Social History Tobacco Use Types Packs/Day Years Used Date Smoking Tobacco: Former Alcohol Use Standard Drinks/Week Comments Yes 0 (1 standard drink = 0.6 oz pur e alcohol) Comments Unknown Sex and Gender Information Value Date Recorded Sex Assigned at Not on file 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 us Historical Provider Final Res ult documented in this encounter Visit Diagnoses Not on filedocumented in this encounter Care Teams Information Assurance Officer Relationship Specialty Start Date End Date Hiwot Quiroz MD [address] [place] [address] PCP - General 02/07/16 03/07/20 Hiwot Quiroz MD [address] [place] [address] PCP - General 03/08/20 04/19/20 Berhane Mendez MD [address] [place] [address] PCP - General 04/20/20 Brenda Woodall MD [address] [place] [id number] General Surgery 03/08/20 Ananya Sloan DPT [address] [facility] [address] [place] [address] Physical Therapist Physical Therapy 09/13/20 documented as of this encounter
--- OUTSIDE RECORDS SUMMARY | 2025-04-22 08:35 | XMS_ITS | Clinical Summary ---
Author Organization [facility] Address [address] [place] [address] Phone Care Team Providers Care Credit Risk Specialist Name Role Phone Hiwot Quiroz MD Primary Care Provider [phone] Allergies Active Allergy Reactions Criticality Noted Date Comments Sulfa (Sulfonamide Antibiotics) Nausea and Vomiting,Other (See Comments) Low 09/20/2011 Medications progesterone micronized (PROMETRIUM) 100 mg Oral Cap Take by mouth daily. Active estradiol (ESTRACE) 1 mg Oral tablet Take 1 mg by mouth daily. Active buPROPion SR 12 hour (WELLBUTRIN SR) 150 mg Oral tablet Take 150 mg by mouth 2 times daily. Active Active Problems Patient Care Coordination No te Formatting of this note migh t be different from the original. Primary Care: Hiwot Quiroz MD Referring Provider: Hiwot Quiroz MD [address] [place] [address] Other: Problem Noted Date Diagnosed Date Lump of breast, left 12/17/2015 Family history of breast cancer 09/20/2011 Vein, varicose Family History Medical History Relation Name Comments Diabetes Father Heart Disease Father congestive hea rt failure Heart Disease Maternal Grandfather Heart Disease Maternal Grandmother Hypertension Mother Breast Cancer Paternal Aunt Cancer Paternal Grandfather skin Cancer Paternal Grandmother skin Ovarian Cancer Neg Hx Relation Name Status Comments Brother Father Maternal Grandfather Maternal Grandmother Mother Paternal Aunt Alive Paternal Grandfather Paternal Grandmother Social History Tobacco Use Types Packs/Day Years Used Date Smoking Tobacco: Former Smokeless Tobacco: Never Alcohol Use Standard Drinks/Week Comments Yes 0 (1 standard drink = 0.6 oz pur e alcohol) moderate Comments No Sex and Gender Information Value Date Recorded Sex Assigned at Not on file Legal Sex Female 6:06 AM [employer] Gender Identity Not on file Sexual Orientation Not on file Occupation Industry Job Start Date Job End Date Not on file Not on file Not on file Not on file Last Filed Vital Signs Vital Sign Reading Time Taken Comments Blood Pressure 133/78 12/30/2015 9:04 AM CDT Pulse 53 12/30/2015 9:04 AM CDT Temperature 36.8 C (98.2 F) 12/30/2015 9:04 AM CDT Respiratory Rate 20 09/28/2011 1:00 PM [employer] Oxygen Saturation 98% 09/28/2011 1:00 PM [employer] Inhaled Oxygen Concentration - - Weight 108 kg (238 lb) 12/30/2015 9:04 AM CDT Height 177.8 cm (5' 10) 12/30/2015 9:04 AM CDT Body Mass Index 34.15 12/30/2015 9:04 AM CDT Plan of Treatment Health Maintenance Due Date Last Done Comments DTAP/TDAP/TD VACCINES (1 - Tdap) 1982 HPV/Cotest (21-29) 1984 CERVICAL CANCER SCREENING 1993 HPV/Cotest (30-65) 1993 PAP SMEAR 1993 COLORECTAL SCREENING 2008 Colorectal Cancer Screening 2008 FIT-DNA Q 3 years 2008 FIT/FOBT Q 1 year 2008 Flex Sig/CT Colonography Q 5 years 2008 ZOSTER VACCINE (1 of 2) 2013 BREAST CANCER SCREENING 12/29/2016 12/30/19 16, 04/12/2015, 04/07/2014, Additional history exists INFLUENZA VACCINE (#1) 2025 RSV VACCINE (60+ or ) (1 - 1-dose 75+ series) 2038 Procedures Procedure Name Priority Date/Time Associated Diagnosis Comments MAMMO DIAG UNI LEFT 3D VALENTIN W OR WO CAD Routine 12/30/2015 8:41 AM CDT Family history of breast cancer Lump of breast, left from Last 3 Months or Most Recently Relevant to Health Maintenance Results * MAMMO DIG DIAG LT UNI W 3D VALENTIN (12/30/2015 8:41 AM CDT) Anatomical Region Laterality Modality Breast Left Mammography 12/30/2015 8:41 AM CDT Narrative 12/31/2015 10:27 AM CDT LEFT BREAST FULL FIELD DIGITAL DIAGNOSTIC MAMMOGRAM WITH CAD WITH 3D TOMOSYNTHESIS LEFT BREAST ULTRASOUND, LIMITED DATE: 12/30/2015 8:41 AM HISTORY: Pain in the upper outer left breast. COMPARISON: Mammograms from [facility] dated 04/12/2015, 04/07/2014 and 03/07/2013. TECHNIQUE: Diagnostic full field digital mammography was performed on the left breast. Low Dose full field Digital Breast tomosynthesis examination was performed with 2D and 3D acquisitions. Examination is read in conjunction with computer aided detection. FINDINGS: Mammogram: Postsurgical changes are redemonstrated in the posterior upper outer left breast related to prior benign excisional biopsy. No concerning mass, suspicious calcifications or architectural distortion is identified. Since the prior mammograms, there has been no significant interval change. Ultrasound: Targeted sonography of the upper outer left breast over the patient's area of pain was also performed. No solid or cystic mass is identified. There are no concerning findings. Overall Assessment: BI-RADS Category 2. Benign findings. Annual mammography is recommended, due in April 2016. Clinical follow-up is recommended for the patient's left breast pain. Procedure Note Bertha Fountain MD - 12/31/2015 LEFT BREAST FULL FIELD DIGITAL DIAGNOSTIC MAMMOGRAM WITH CAD WITH 3D TOMOSYNTHESIS LEFT BREAST ULTRASOUND, LIMITED DATE: 12/30/2015 8:41 AM HISTORY: Pain in the upper outer left breast. COMPARISON: Mammograms from [facility] dated 04/12/2015, 04/07/2014 and 03/07/2013. TECHNIQUE: Diagnostic full field digital mammography was performed on the left breast. Low Dose full field Digital Breast tomosynthesis examination was performed with 2D and 3D acquisitions. Examination is read in conjunction with computer aided detection. FINDINGS: Mammogram: Postsurgical changes are redemonstrated in the posterior upper outer left breast related to prior benign excisional biopsy. No concerning mass, suspicious calcifications or architectural distortion is identified. Since the prior mammograms, there has been no significant interval change. Ultrasound: Targeted sonography of the upper outer left breast over the patient's area of pain was also performed. No solid or cystic mass is identified. There are no concerning findings. Overall Assessment: BI-RADS Category 2. Benign findings. Annual mammography is recommended, due in April 2016. Clinical follow-up is recommended for the patient's left breast pain. Janell Mccartney MD MAMMO ORDERABLES Final Result from Last 3 Months or Most Recently Relevant to Health Maintenance Insurance [employer] [facility] OPEN ACCESS Advance Directives For more information, please contact: [phone] * Full Code (Latest Code Status on File) Date Activated Date Inactivated Comments 09/28/2011 10:30 AM 09/28/2011 3:21 PM Care Teams Credit Risk Specialist Relationship Specialty Start Date End Date Hiwot Quiroz MD PCP - General Family Practice 12/24/15
[2025-04-22 09:17] LABS: Hemoglobin A1C 5.7 % (<5.7)
[2025-04-22 09:22] LABS: Alanine Aminotransferase 14 U/L (6-35); Albumin Level 4.2 g/dL (3.5-5.1); Alkaline Phosphatase 79 U/L (38-126); Anion Gap 7 mmol/L (4-12); Aspartate Amino Transferase 28 U/L (14-36); Bilirubin,Total 0.5 mg/dL (0.2-1.3); Blood Urea Nitrogen 12 mg/dL (7-17); Calcium 9.5 mg/dL (8.4-10.2); Carbon Dioxide 26 mmol/L (22-30); Chloride 106 mmol/L (98-107); Cholesterol 231 mg/dL (0-200); Estimated Glomerular Filt Rate > 60; Glucose 104 mg/dL (65-110); HDL Direct 50 mg/dL; Potassium 4.5 mmol/L (3.4-5.0); Sodium 139 mmol/L (137-145); Total Protein 7.1 g/dL (6.3-8.2); Triglycerides 97 mg/dL (<150)
[2025-04-22 09:57] LABS: Thyroid Stimulating Hormone 2.250 uIU/mL (0.465-4.680)
== END 2025-04-22 08:32 | disposition home or self-care (01) ==
PROVIDERS: PCP Family Medicine; Referring Provider Student in an Organized Health Care Education/Training Program; Visit Provider Family Medicine
DX: Z12.31 Encounter for screening mammogram for malignant neoplasm of breast (principal); Z13.220 Encounter for screening for lipoid disorders; E66.9 Obesity, unspecified; R73.03 Prediabetes; I87.2 Venous insufficiency (chronic) (peripheral); Z86.711 Personal history of pulmonary embolism; Z79.01 Long term (current) use of anticoagulants
CPT/HCPCS: 36415; 77063; 77067; 80053; 80061; 83036; 84443

== ENCOUNTER 2025-06-30 09:02 | Outpatient (CLI) | payer OTHER, SELFPAY ==
--- NOTE | ~2025-06-30 | XR_ITS ---
EXAMINATION: XR knee LT 3V, 06/30/2025 9:08 CDT HISTORY: Pain in left knee x 3 weeks, no inj, no surg COMPARISON: No comparisons available. Findings: No acute fracture or malalignment. No significant degenerative changes. Soft tissues unremarkable. Impression: No acute fracture or malalignment. Reviewed, dictated and finalized at location P. Impression: No acute fracture or malalignment.
== END 2025-06-30 09:03 | disposition home or self-care (01) ==
LOC: GOSHIMG 09:02
PROVIDERS: PCP Student in an Organized Health Care Education/Training Program; Visit Provider Student in an Organized Health Care Education/Training Program
DX: M25.562 Pain in left knee (principal)
CPT/HCPCS: 73562